=== PATIENT | male | born 1930 | race Caucasian/White ===

== ENCOUNTER → 2016-12-20 | Outpatient (CLI) | payer MEDICARE, BC ==
[~2016-12-20] MED LIST: LISI10TA7 PO; MELO-267 PO; METR45CR TP; [UNRECOGNIZED DRUG - CODE] PO
--- NOTE | 2016-12-20 09:06 | DI ---
Indication: ITS.REASON: N13.5 URETER OBSTRUCTION; N20.0 KIDNEY STONE PROCEDURE: KUB: Encounter: Initial Comparison: Renal CT dated June 06, 2016 Findings: Two large stones projecting over the right abdomen measuring 2.4 cm in diameter each. On the prior CT study these were both within a markedly dilated right renal pelvis and the location appears similar to the comparison CT study. No definite stones projecting over the left kidney or expected course of the ureters. Nonobstructive nonspecific bowel gas pattern. Left pelvic phleboliths. Impression: Right sided urolithiasis. .
== END ==
LOC: IMA 08:34
PROVIDERS: ATTEND Specialist
DX: N20.0 Calculus of kidney (principal); N13.5 Crossing vessel and stricture of ureter without hydronephrosis